=== PATIENT | male | born 1960 | race Caucasian/White ===

== ENCOUNTER 2020-10-26 16:48 | Emergency (ER) | payer BC ==
[2020-10-26] MEDS ORDERED: HYDROmorphone 0.5 MG/0.5 ML SYRINGE IVP STA ×2 (17:31→18:54)
[2020-10-26] MEDS ORDERED: SODIUM CHLORIDE 0.9% 1,000 ML IV STA (17:31)
[2020-10-26] MEDS ORDERED: ONDANSETRON 4 MG/2 ML VIAL IVP STA (17:31)
[2020-10-26] MEDS ORDERED: FAMOTIDINE 20 MG/2 ML VIAL IV STA (17:32)
[2020-10-26 18:07] LABS: Appearance,Urine Clear (Clear); Basophils # (A) 0.1 k/uL (0-0.2); Basophils % (A) 0 %; Bilirubin,Urine Negative (Negative); Blood,Urine Negative (Negative); Color,Urine Colorless; Eosinophils # (A) 0.2 k/uL (0-0.7); Eosinophils % (A) 2 %; Glucose,Urine (UA) Negative (Negative); HCT 47.6 % (39.0-53.0); HGB 16.4 gm/dL (13.0-17.5); Ketones,Urine Negative (Negative); Leukocyte Esterase,Urine Negative (Negative); Lymphocytes % (A) 13 %; MCH 33.1 pg (25.0-35.0); MCHC 34.4 g/dL (31.0-37.0); MCV 96.3 fL (80.0-100.0); Mean Platelet Volume 7.4; Monocytes # (A) 0.6 k/uL (0-1.0); Monocytes % (A) 4 %; Neutrophils # (A) 11.7 k/uL (1.3-7.7); Neutrophils % (A) 80 %; Nitrite,Urine Negative (Negative); Platelet Count 299 k/uL (150-450); Protein,Urine Negative (Negative); RBC 4.94 m/uL (4.30-5.90); RDW 12.8 % (11.5-15.5); Specific Gravity,Urine 1.003 (1.001-1.035); Urobilinogen,Urine <2.0 mg/dL (<2.0); WBC 14.7 k/uL (3.8-10.6)
[2020-10-26 18:28] LABS: ALT 69 U/L (4-49); AST 35 U/L (17-59); African American GFR (CKD) >90 (>60 ml/min/1.73 sqM); Albumin 4.8 g/dL (3.5-5.0); Alkaline Phosphatase 92 U/L (38-126); Anion Gap 11 mmol/L; Blood Urea Nitrogen 19 mg/dL (9-20); Calcium 9.8 mg/dL (8.4-10.2); Carbon Dioxide 23 mmol/L (22-30); Chloride 100 mmol/L (98-107); Glucose 103 mg/dL (74-99); Lipase 111 U/L (23-300); Non-African American GFR(CKD) >90 (>60 ml/min/1.73 sqM); Potassium 4.5 mmol/L (3.5-5.1); Sodium 134 mmol/L (137-145); Total Bilirubin 0.7 mg/dL (0.2-1.3); Total Protein 7.9 g/dL (6.3-8.2)
[2020-10-26] MEDS ORDERED: LORazepam 2 MG/ML INJ IV STA (18:54)
--- NOTE | 2020-10-26 19:07 | XR ---
EXAMINATION TYPE: XR chest 1V DATE OF EXAM: 10/26/2020 CLINICAL HISTORY: cough. TECHNIQUE: Portable frontal view of the chest. COMPARISON: None FINDINGS: The cardiomediastinal silhouette is within normal limits for size. Pulmonary vasculature i s normal. There is no focal air space opacity. No pleural effusion. No pneumothorax seen. No acute d isplaced osseous fracture. IMPRESSION: No acute cardiopulmonary process.
--- NOTE | 2020-10-26 21:01 | CT ---
EXAMINATION TYPE: CT ChestAbdPelvis w con DATE OF EXAM: 10/26/2020 COMPARISON: Same day chest radiograph HISTORY: Pain. Chest and flank pain. CT DLP: 1619.6 mGycm Automated exposure control for dose reduction was used. CONTRAST: CT scan of the chest, abdomen and pelvis is performed with 100 mL Isovue-300 intravenous contrast. FINDINGS: LUNGS: Minimal atelectasis. No focal airspace opacity. There is no pleural effusion or pneumothorax s een. The tracheobronchial tree is patent. MEDIASTINUM: No suspicious axillary, mediastinal, or hilar lymph adenopathy. There is a right paratra cheal mediastinal lymph node measuring 11 mm however this demonstrates somewhat fatty appearance. Car diac size normal. No pericardial effusion. Calcified coronary artery disease. Thoracic aorta normal i n caliber. OTHER: Thyroid normal. LIVER/GB: Fatty liver. PANCREAS: Normal. SPLEEN: Normal. ADRENALS: Normal. KIDNEYS: No hydronephrosis bilaterally. There is mild nonspecific bilateral perinephric stranding. Th ere is homogenous and synchronous renal enhancement bilaterally. Too small to characterize hypodense lesion of the left lower pole. BOWEL: No evidence of bowel obstruction or thickening. Colonic diverticulosis. No acute diverticulit is. PELVIS: Protrusion of the prostate into the base of the urinary bladder. LYMPH NODES: No greater than 1 cm abdominal or pelvic lymph nodes are appreciated. PERITONEUM: No pneumoperitoneum or ascites. OSSEOUS STRUCTURES: Degenerative changes of the spine. No acute osseous abnormality. VASCULAR: Abdominal aorta normal in caliber. IMPRESSION: 1. Fatty liver. 2. Too small to characterize hypodense lesion of the left kidney. No hydronephrosis.
[2020-10-26] MEDS ORDERED: ACET/COD 300 MG/30 MG STARTER PACK 6 TAB BTL PO STA (21:57)
[2020-10-26] MEDS ORDERED: CYCLOBENZAPRINE 10MG STARTER 3 TAB BTL PO STA (21:57)
--- NOTE | 2020-10-26 21:59 | ED ---
General Adult HPI - General Chief complaint: Abdominal Pain Stated complaint: Pain, trouble swallowing Time Seen by Provider: 10/26/20 17:15 Source: patient Mode of arrival: ambulatory Limitations: no limitations - History of Present Illness Initial comments: 60 year-old male patient presents to the emergency department for multiple complaints. He reports neck pain, back pain, midepigastric pain, and bilateral flank pain. Patient states that he is also having gagging and acid reflux. States that symptoms have been going on for quite some time and he has been receiving care from his primary care physician. States that he has ordered testing, but he cannot wait anymore due to the pain worsening. He states the pain in his back feels like spasms that start near his kidneys and go up into his neck. Denies any radiation of the pain down his arms. States that he constantly has discomfort over his midepigastric region which causes him to gag. He gets a burning in his chest which he believes is acid reflux. State that his physician did recently prescribe him omeprazole and gabapentin. He wants to do an MRI, have him see a hat ironer, and recently did labs and cologard. Patient states nothing is working, it is making him depressed, and he cannot wait any longer for answers. Patient denies any recent rash, fever, chills, cough, numbness, tingling, dizziness, weakness, hematuria, dysuria, urinary urgency, urinary frequency, headache, visual changes, or any other complaints. - Related Data Home Medications Medication Instructions Recorded Confirmed Acetaminophen [Tylenol 8 Hour] 650 mg PO Q8H PRN 10/26/20 10/26/20 Esomeprazole Magnesium [NexIUM 20 mg PO DAILY 10/26/20 10/26/20 24Hr] Gabapentin [Neurontin] 300 mg PO TID 10/26/20 10/26/20 Meloxicam 7.5 mg PO DAILY 10/26/20 10/26/20 Omeprazole 40 mg PO DAILY 10/26/20 10/26/20 allopurinoL [Zyloprim] 300 mg PO DAILY 10/26/20 10/26/20 amLODIPine BESYLATE/BENAZEPRIL 1 tab PO BID 10/26/20 10/26/20 [amLODIPine BESYLATE/BENAZEPRIL 5-20 MG] Previous Rx's Medication Instructions Recorded Cyclobenzaprine [Flexeril] 10 mg PO TID #15 tab 10/26/20 Famotidine [Pepcid] 20 mg PO HS #30 tablet 10/26/20 Allergies Allergy/AdvReac Type Severity Reaction Status Date / Time Penicillins Allergy Rash/Hives Verified 10/26/20 19:38 Review of Systems ROS Statement: Those systems with pertinent positive or pertinent negative responses have been documented in the HPI. ROS Other: All systems not noted in ROS Statement are negative. Past Medical History Past Medical History: GERD/Reflux History of Any Multi-Drug Resistant Organisms: None Reported Past Surgical History: Orthopedic Surgery Additional Past Surgical History / Comment(s): lt ankle and rt leg Past Psychological History: Anxiety Smoking Status: Current every day smoker Past Alcohol Use History: Occasional Past Drug Use History: Marijuana General Exam Limitations: no limitations General appearance: alert, in no apparent distress, other (This is a well developed, well nourished, adult male patient in mild distress related to pain. Vital signs upon presentation are temperature 98.5F, pulse 70, respirations 22, blood pressure 158/94, pulse ox 96% on room air.) Eye exam: Present: normal appearance, PERRL, EOMI. Absent: scleral icterus, conjunctival injection, periorbital swelling ENT exam: Present: normal exam, normal oropharynx, mucous membranes moist Respiratory exam: Present: normal lung sounds bilaterally. Absent: respiratory distress, wheezes, rales, rhonchi, stridor Cardiovascular Exam: Present: regular rate, normal rhythm, normal heart sounds. Absent: systolic murmur, diastolic murmur, rubs, gallop, clicks GI/Abdominal exam: Present: soft, normal bowel sounds. Absent: distended, tenderness, guarding, rebound, rigid Back exam: Present: normal inspection. Absent: vertebral tenderness Neurological exam: Present: alert, oriented X3, CN II-XII intact Psychiatric exam: Present: normal affect, normal mood Skin exam: Present: warm, dry, intact, normal color. Absent: rash Course Vital Signs 10/26/20 10/26/20 17:08 22:35 Temperature 98.5 F 97.8 F Pulse Rate 70 77 Respiratory 22 20 Rate Blood Pressure 158/94 132/84 O2 Sat by Pulse 96 97 Oximetry EKG Findings - EKG Comments: EKG Findings:: EKG obtained at 1752 shows normal sinus rhythm with a ventricular rate of 60, NV interval 146, QRS duration 92, QT 424, QTC 424. No evidence of ST elevation or depression Medical Decision Making - Medical Decision Making 60-year-old male patient presents to the emergency department today for evaluation of neck pain, back pain, flank pain, abdominal pain. Physical examination did reveal midepigastric tenderness. He is neurologically intact. No focal deficits. Neurovascular status is intact. Labs reviewed and did reveal elevated white blood cell count of 14.7. Sodium 134. Urine is negative. Covid is negative. CT chest, abdomen, pelvis obtained and showed a small lesion on the left kidney. Upon reevaluation is resting comfortably in bed. States he is feeling better. We discharged with muscle relaxer and Tylenol for codeine. Is instructed follow up his primary care physician to proceed with testing as ordered. He is instructed to discuss kidney lesion so this can be monitored. Return parameters were discussed in detail. He verbalizes understanding and agrees this plan. Case discussed my attending Dr. Weems. - Lab Data Result diagrams: 10/26/20 17:57 10/26/20 17:57 Lab Results 10/26/20 10/26/20 10/26/20 Range/Units 17:57 17:57 17:57 WBC 14.7 H (3.8-10.6) k/uL RBC 4.94 (4.30-5.90) m/uL Hgb 16.4 (13.0-17.5) gm/dL Hct 47.6 (39.0-53.0) % MCV 96.3 (80.0-100.0) fL MCH 33.1 (25.0-35.0) pg MCHC 34.4 (31.0-37.0) g/dL RDW 12.8 (11.5-15.5) % Plt Count 299 (150-450) k/uL MPV 7.4 Neutrophils % 80 % Lymphocytes % 13 % Monocytes % 4 % Eosinophils % 2 % Basophils % 0 % Neutrophils # 11.7 H (1.3-7.7) k/uL Lymphocytes # 2.0 (1.0-4.8) k/uL Monocytes # 0.6 (0-1.0) k/uL Eosinophils # 0.2 (0-0.7) k/uL Basophils # 0.1 (0-0.2) k/uL Sodium 134 L (137-145) mmol/L Potassium 4.5 (3.5-5.1) mmol/L Chloride 100 (98-107) mmol/L Carbon Dioxide 23 (22-30) mmol/L Anion Gap 11 mmol/L BUN 19 (9-20) mg/dL Creatinine 0.63 L (0.66-1.25) mg/dL Est GFR (CKD-EPI)AfAm >90 (>60 ml/min/1.73 sqM) Est GFR (CKD-EPI)NonAf >90 (>60 ml/min/1.73 sqM) Glucose 103 H (74-99) mg/dL Plasma Lactic Acid Sarabjit (0.7-2.0) mmol/L Calcium 9.8 (8.4-10.2) mg/dL Total Bilirubin 0.7 (0.2-1.3) mg/dL AST 35 (17-59) U/L ALT 69 H (4-49) U/L Alkaline Phosphatase 92 (38-126) U/L Troponin I (0.000-0.034) ng/mL Total Protein 7.9 (6.3-8.2) g/dL Albumin 4.8 (3.5-5.0) g/dL Lipase 111 (23-300) U/L Urine Color Colorless Urine Appearance Clear (Clear) Urine pH 6.0 (5.0-8.0) Ur Specific [place] 1.003 (1.001-1.035) Urine Protein Negative (Negative) Urine Glucose (UA) Negative (Negative) Urine Ketones Negative (Negative) Urine Blood Negative (Negative) Urine Nitrite Negative (Negative) Urine Bilirubin Negative (Negative) Urine Urobilinogen <2.0 (<2.0) mg/dL Ur Leukocyte Esterase Negative (Negative) Coronavirus (PCR) (Not Detectd) 10/26/20 10/26/20 10/26/20 Range/Units 17:57 17:57 17:57 WBC (3.8-10.6) k/uL RBC (4.30-5.90) m/uL Hgb (13.0-17.5) gm/dL Hct (39.0-53.0) % MCV (80.0-100.0) fL MCH (25.0-35.0) pg MCHC (31.0-37.0) g/dL RDW (11.5-15.5) % Plt Count (150-450) k/uL MPV Neutrophils % % Lymphocytes % % Monocytes % % Eosinophils % % Basophils % % Neutrophils # (1.3-7.7) k/uL Lymphocytes # (1.0-4.8) k/uL Monocytes # (0-1.0) k/uL Eosinophils # (0-0.7) k/uL Basophils # (0-0.2) k/uL Sodium (137-145) mmol/L Potassium (3.5-5.1) mmol/L Chloride (98-107) mmol/L Carbon Dioxide (22-30) mmol/L Anion Gap mmol/L BUN (9-20) mg/dL Creatinine (0.66-1.25) mg/dL Est GFR (CKD-EPI)AfAm (>60 ml/min/1.73 sqM) Est GFR (CKD-EPI)NonAf (>60 ml/min/1.73 sqM) Glucose (74-99) mg/dL Plasma Lactic Acid Sarabjit 0.8 (0.7-2.0) mmol/L Calcium (8.4-10.2) mg/dL Total Bilirubin (0.2-1.3) mg/dL AST (17-59) U/L ALT (4-49) U/L Alkaline Phosphatase (38-126) U/L Troponin I <0.012 (0.000-0.034) ng/mL Total Protein (6.3-8.2) g/dL Albumin (3.5-5.0) g/dL Lipase (23-300) U/L Urine Color Urine Appearance (Clear) Urine pH (5.0-8.0) Ur Specific [place] (1.001-1.035) Urine Protein (Negative) Urine Glucose (UA) (Negative) Urine Ketones (Negative) Urine Blood (Negative) Urine Nitrite (Negative) Urine Bilirubin (Negative) Urine Urobilinogen (<2.0) mg/dL Ur Leukocyte Esterase (Negative) Coronavirus (PCR) Not Detected (Not Detectd) - Radiology Data Radiology results: report reviewed, image reviewed Two-view x-ray of the chest is obtained. Report was reviewed in its entirety. Impression by Dr. Hughes shows no acute cardiopulmonary process CT chest abdomen and pelvis with contrast was obtained. Report was reviewed in its entirety. Impression by Dr. Hughes shows fatty liver, too small to characterize hypodense lesion of the left kidney. No hydronephrosis. Disposition Clinical Impression: Neck pain, Flank pain, Abdominal pain Disposition: HOME SELF-CARE Condition: Good Instructions (If sedation given, give patient instructions): Abdominal Pain (ED), Flank Pain (ED), Neck Pain (ED) Additional Instructions: Take medications as directed. Increase fluids. Follow-up with gastroenterology as your doctor has planned. Follow up with Primary Care Physician for Recheck in 1-2 Days. Return for Any New, Worsening, or concerning Symptoms. Prescriptions: Cyclobenzaprine [Flexeril] 10 mg PO TID #15 tab Famotidine [Pepcid] 20 mg PO HS #30 tablet Is patient prescribed a controlled substance at d/c from ED?: No Referrals: Tripp High MD [Primary Care Provider] - 1-2 days Time of Disposition: 21:59
[2020-10-26 22:36] VITALS: BP 132/84; PULSE 77; RESP 20; TEMP 97.8
== END 2020-10-26 22:36 | disposition home or self-care (01) ==
LOC: EC 16:48
DX: R10.9 Unspecified abdominal pain (principal); M54.2 Cervicalgia; K21.9 Gastro-esophageal reflux disease without esophagitis; F17.200 Nicotine dependence, unspecified, uncomplicated
CPT/HCPCS: 36415; 93005; 80053; 83605; 83690; 84484; 85025; 81003; 87635; 71045; 71260; 74177; 99284; 96374; 96375; 96376; J2060; J2405; J1170; Q9967

== ENCOUNTER → 2021-04-04 | Outpatient (CLI) | payer BC ==
--- NOTE | 2021-04-04 10:54 | MR ---
EXAMINATION TYPE: MR cspine/lspine wo con DATE OF EXAM: 04/04/2021 COMPARISON: None HISTORY: Lumbar disc prolapse, neck pain, numbness TECHNIQUE: Multiplanar, multisequence imaging of the lumbar and cervical spine is performed without I V contrast. FINDINGS: No intravenous contrast, patient refused. Cervical spine MRI: There is multilevel spondylosis, endplate discogenic marrow signal change. Loss o f disc height and signal is present at the intervertebral levels especially C5-6 and C6-7. Cervical v ertebral bodies show preserved height, near-anatomic alignment. Cervical cord signal is maintained. C2-3: Posterior disc bulge contacts the anterior cervical cord. No significant foraminal encroachment or spinal stenosis. C3-4: Posterior disc protrusion is noted, no significant spinal stenosis. Some uncovertebral joint hy pertrophy, facet arthropathy changes present, mild foraminal encroachment suspected on the left. C4-5: Posterior central disc protrusion contacts the anterior cervical cord. There is mild to moderat e spinal stenosis. Uncovertebral joint hypertrophy, facet arthropathy changes encroach minimally on t he foramina C5-6: There is moderate to severe spinal stenosis due to posterior extension of endplate disc complex , minimal retrolisthesis grade 1 C5 and C6. There is bilateral foraminal encroachment due to uncovert ebral joint hypertrophy and facet arthropathy causing significant narrowing left greater than right. C6-7: Posterior fixation and plate disc complex results in mild spinal stenosis. Uncovertebral joint hypertrophy, facet arthropathy causes bilateral foraminal encroachment. C7-T1: Within normal limits. IMPRESSION: Degenerative disc disease, spinal stenosis, multilevel foraminal encroachment Lumbar spine MRI: Sagittal images of the lumbar spine show vertebral body heights and alignment to appear satisfactory. There is multilevel spondylosis with endplate discogenic marrow signal change. Loss of disc height a nd signal is consistent with disc desiccation and degenerative disc disease and is most significant a t L4-5, L2-3. Conus is at T12 and shows an unremarkable appearance. L5-S1: There is facet arthropathy change. Posterior broad-based disc bulge is minimal. No significant spinal stenosis or foraminal encroachment. L4-5: There is facet arthropathy with hypertrophy ligamentum flavum. There is some encroachment on th e lateral recesses. Circumferential posterior disc bulge causes anterior mass effect on the thecal sa c, mild to moderate spinal stenosis. Circumflex extension) complex results in bilateral foraminal enc roachment. L3-4: Circumferential extension of endplates is complex causes bilateral foraminal encroachment. Ther e is no significant spinal stenosis. Facet arthropathy change with hypertrophy of the ligamentum flav um is noted. Minimal circumferential disc bulge effaces the anterior thecal sac. L2-3: No significant spinal stenosis. Circumferential extension) complex encroaches upon the foramina . There is some facet arthropathy change. L1-2: No significant spinal stenosis. There is some mild facet arthropathy. No significant foraminal encroachment. IMPRESSION: Degenerative disc disease, facet arthropathy, there is some spinal stenosis at L4-5. Mult ilevel foraminal encroachment. IMPRESSION: Negative MRI of the lumbar spine.
== END | disposition home or self-care (01) ==
LOC: RADMRIMAIN 09:00
PROVIDERS: ATTEND Family Medicine
DX: M47.812 Spondylosis without myelopathy or radiculopathy, cervical region (principal); M48.02 Spinal stenosis, cervical region; M50.222 Other cervical disc displacement at C5-C6 level; M48.061 Spinal stenosis, lumbar region without neurogenic claudication; M51.26 Other intervertebral disc displacement, lumbar region; M51.36 Other intervertebral disc degeneration, lumbar region; M47.816 Spondylosis without myelopathy or radiculopathy, lumbar region
CPT/HCPCS: 72141; 72148

== ENCOUNTER → 2021-05-06 | Outpatient (CLI) | payer BC ==
[2021-05-06 13:12] VITALS: BP 124/82; PULSE 65; RESP 18
--- NOTE | 2021-05-06 15:50 | P.PAINCN ---
History of Present Illness - Reason for Consult Consult date: 05/06/21 - History of Present Illness Antoine is a 61-year-old male presented to clinic today for initial evaluation for pain management. He was referred to this clinic by his primary care provider Dr. High. At this visit he was complaining of all over pain. He reports that he had neck pain that radiated down both arms into his hands and no specific dermatomal pattern. He reports he has low back to upper back pain with numbness and tingling radiating down his legs to his feet without any particular radicular pattern. He reports that his pain moves about his body on different days. He reported that his pain has begun about 7 months ago coinciding with his first COVID-19 vaccination. He describes his pain as a sharp stabbing, numbing pain. Has not been able identify single factor that increases pain. Reports his pain is better with medication which includes gabapentin and [place], heat, ice and tree care foreman. He has not received any physical therapy for these pains will reports he did not get any significant relief with this chiropractor. He rates his pain today as 7 out of 10 on a 0-to-10 scale. On average he reports that his pain is a 4 out of 10. Of his multiple pain complaints he rates his neck pain as his primary issue today. He denies any bowel or bladder dysfunction, saddle anesthesia, or any other red flag symptoms. Denies any adverse effects or complications from his current medications. His primary care provider is providing him with gabapentin and [place]. Past Medical History Past Medical History: GERD/Reflux, Hypertension Additional Past Medical History / Comment(s): gout History of Any Multi-Drug Resistant Organisms: None Reported Past Surgical History: Orthopedic Surgery Additional Past Surgical History / Comment(s): lt ankle and rt leg Past Anesthesia/Blood Transfusion Reactions: No Reported Reaction Past Psychological History: Anxiety Smoking Status: Current every day smoker Past Alcohol Use History: Occasional Past Drug Use History: Marijuana Medications and Allergies Home Medications Medication Instructions Recorded Confirmed Type Acetaminophen [Tylenol 8 Hour] 650 mg PO Q8H PRN 10/26/20 05/06/21 History Gabapentin [Neurontin] 300 mg PO TID 10/26/20 05/06/21 History Omeprazole 40 mg PO DAILY 10/26/20 05/06/21 History allopurinoL [Zyloprim] 300 mg PO DAILY 10/26/20 05/06/21 History amLODIPine BESYLATE/BENAZEPRIL 1 tab PO BID 10/26/20 05/06/21 History [amLODIPine BESYLATE/BENAZEPRIL 5-20 MG] [place] (Unkn Dose) 1 tab PO DAILY 04/30/21 05/06/21 History Allergies Allergy/AdvReac Type Severity Reaction Status Date / Time Penicillins Allergy Rash/Hives Verified 05/06/21 13:12 Physical Exam REVIEW OF ORGAN SYSTEMS: CONSTITUTIONAL: No fevers or chills. No recent weight loss. EYES: denies troubles with vision. HEENT: No difficulties with hearing. No nosebleeds. No difficulty swallowing. RESPIRATORY: Denies any troubles with breathing or dyspnea on exertion. CARDIOVASCULAR: Denies any chest pain, palpitations, or recent heart attacks. GASTROINTESTINAL: Denies fatty food intolerance. Has change in bowel habits and gas bloat. GENITOURINARY: Denies any blood in urine. Has increased urinary frequency. NEUROLOGICAL: + numbness and tingling along the distal extremities. No seizure disorders or headaches. MUSCULOSKELETAL: Has back pain. SKIN:no skin cancer. No rash. PSYCHIATRIC: Denies current depression or suicidal thoughts. ENDOCRINE: Denies current thyroid disorders. Denies any blood sugar glucose intolerance. HEME/LYMPHATIC: Denies any lumps and bumps around the neck. History of deep venous thrombosis. ALLERGY/IMMUNOLOGY: No immunoglobulin therapy. No immune deficiencies. BREAST: Denies current breast lumps, pain or nipple discharge. Physical Examinations : Constitutiona : Cooperative , not in acute distress . HEENT : nech : supple , no Lymphadenopathy , normal thyroid size . : eyes no ptosis , no icterus, no photophobia . : ENT normal of hearing , normal oropharynx , no Thrush . Respiratory : Chest clear to auscultations Bilaterally , no wheezing , no Rhonchi . Cardiovascula : regular rate and rhythem , S1 , S2 , no S3 , no S4. Gastrointestina : abdomen soft no tenderness , bowel sounds , no organomegally . Genitourinary : Defferred . neurologic : Cranial nerve II to XII intact , no focal neurological deffecit . psychatric : alert , oriented X 3 , appropriate affect , intact judgment and insight . Lymphatic : no Lymphadenopathy . musculoskeltal : Cervical Spine motor stregnth in the deltoid and biceps, normal right side , normal Left side motor stregnth biceps and the wrist ex tensors normal right side ,normal left side . motor stregnth in the triceps muscle . normal Right side , normal Left side deep tendon reflexes= normal at the biceps , normal at Brachioradialis , normal at triceps. cervical facet loading test: Positive Bilaterally Spurling test= positive bilaterally. Neck distraction test= positive bilaterally. Joe sign= negative Lumber spine moter stegnth lower extremities ,thigh and legs 5/5 Right side , 5/5 Left side deep tendon reflexes : normal Knee Jerk , normal ankle Jerk lumber facet Loading Test= positive Right , positive Left Range of motion of the lumbar spine Flexion 30 degrees, extension 10 degrees strait leg raising test , positive at 20 degree Fabere test= positive right tenderness over the Sacroiliac joint on the Right Gaenslen test= positive right. Seated flexion test= positive right. Assessment and Plan Assessment: Assessment and plan Assessment: Cervical spondylosis and facet arthropathy without myelopathy Lumbar spondylosis and facet arthropathy without myelopathy Myofascial pain Plan: Patient could benefit from diagnostic bilateral cervical medial branch blocks at C5 6 and C6 7. If he has significant reduction in his pain continue with second cervical medial branch block at C5 6 and C6 7. Continue up to including rhizotomy. In the future patient could benefit from right-sided lumbar medial branch block at L5-S1 The future patient could benefit from right-sided SI joint injection Medications: Patient currently gets gabapentin and [place] from his primary care provider - PQRS measures = - Patient's medications are documented in the chart. -Tobacco use is positive and counseling.Given. -Patient's has not received pneumococcal vaccine. -Advanced care planning discussed, patient not eligible. -Opiate contract not signed. -Pain positive and follow-up visit/procedure is scheduled. -Patient's blood pressure measured [124/82 ] , and documented in the record ,and patient will follow up with the primary care. -Patient was not identified as an unhealthy alcohol user Time with Patient: Greater than 30 PQRS Measure Charge Sheet - Pain Location Neck Non-Pharmacological Interventions: Heat, Ice, Position/Reposition Pharmacological Interventions: PRN Medication PQRS Narrative: Pain Intensity [Back] 0 Pain Intensity [Neck] 10 Scale Used Numeric (1 - 10) Home Medications: Ambulatory Orders Acetaminophen [Tylenol 8 Hour] 650 mg PO Q8H PRN 10/26/20 Gabapentin [Neurontin] 300 mg PO TID 10/26/20 Omeprazole 40 mg PO DAILY 10/26/20 allopurinoL [Zyloprim] 300 mg PO DAILY 10/26/20 amLODIPine BESYLATE/BENAZEPRIL [amLODIPine BESYLATE/BENAZEPRIL 5-20 MG] 1 tab PO BID 10/26/20 [place] (Unkn Dose) 1 tab PO DAILY 04/30/21
== END ==
LOC: PNWHC3 12:03
PROVIDERS: ATTEND Student in an Organized Health Care Education/Training Program
DX: M47.812 Spondylosis without myelopathy or radiculopathy, cervical region (principal); M47.816 Spondylosis without myelopathy or radiculopathy, lumbar region; M79.18 Myalgia, other site; I10 Essential (primary) hypertension; F41.9 Anxiety disorder, unspecified; F17.200 Nicotine dependence, unspecified, uncomplicated; K21.9 Gastro-esophageal reflux disease without esophagitis; Z79.899 Other long term (current) drug therapy; Z88.0 Allergy status to penicillin
CPT/HCPCS: 99211

== ENCOUNTER → 2021-05-24 | Outpatient (CLI) | payer BC ==
--- NOTE | 2021-05-26 17:28 | US ---
EXAMINATION TYPE: US kidneys/renal and bladder DATE OF EXAM: 05/24/2021 COMPARISON: Correlation CT 10/26/2020 CLINICAL HISTORY: 61-year-old male N28.1 RENAL CYST. EXAM MEASUREMENTS: Right Kidney: 13.1 x 6.2 x 6.7 cm Left Kidney: 12.5 x 6. 1 x 5.5 cm Right Kidney: Prominent in size. No hydronephrosis. Left Kidney: Prominent in size. There is a central, mid pole cyst measuring 1.3 x 1.2 x 1.6cm Bladder: wnl IMPRESSION: No hydronephrosis. A 1.6 cm benign midpole cyst left kidney.
== END | disposition home or self-care (01) ==
LOC: RADUSWWP 14:50
PROVIDERS: ATTEND Urology
DX: N28.1 Cyst of kidney, acquired (principal)
CPT/HCPCS: 76770

== ENCOUNTER → 2021-10-31 | Outpatient (CLI) | payer BC ==
--- NOTE | 2021-10-31 16:13 | MR ---
EXAMINATION TYPE: MR brain wo con DATE OF EXAM: 10/31/2021 COMPARISON: NONE HISTORY: Headache, unspecified TECHNIQUE: Multiplanar, multisequence imaging of the brain and brainstem is performed without IV cont rast. FINDINGS: Diffusion weighted images demonstrate no evidence of a recent infarct or other diffusion abnormality. There is no extraaxial fluid collection or significant white matter signal abnormality. The ventricu lar system and cisternal spaces are normal in size and appearance. The brain volume is age appropria te. Midline structures demonstrate normal morphology. The craniocervical junction appears within normal limits. Normal vascular flow voids are present. There is dominant right vertebral artery filling the basilar artery incidentally noted. The visualized sinuses are clear and the globes are intact. Increa sed fluid signal inferior left mastoid air cells. IMPRESSION: Correlate to exclude mild inferior left-sided mastoiditis otherwise unremarkable study.
== END | disposition home or self-care (01) ==
LOC: RADMRIMAIN 14:21
PROVIDERS: ATTEND Nurse Practitioner
DX: R51.9 Headache, unspecified (principal)
CPT/HCPCS: 70551

== ENCOUNTER → 2024-10-03 | Outpatient (CLI) | payer MEDICARE ==
--- NOTE | 2024-10-03 13:09 | CTL ---
EXAMINATION TYPE: CT Low Dose Lung DATE OF EXAM: 10/03/2024 12:14 PM COMPARISON: 10/26/2020. CLINICAL INDICATION: Male, 64 years old with history of Z12.2 Screening; J44.9 COPD; Current smoker 1 /2 ppd x 43 years, history of tobacco use. TECHNIQUE: Multiple axial non-contrast scans were obtained from approximately the lung apices through the upper abdomen. Coronal and sagittal reformatted images were obtained. Low dose technique was uti lized. MIP were created on a separate workstation and submitted for review. CT DLP: 76 mGycm, Automated exposure control for dose reduction was used. CT Contrast: Contrast used: None Oral contrast used: None FINDINGS: Lack of intravenous contrast and low dose technique limits the evaluation of the vascular and soft ti ssue structures. LUNGS: No evidence of pulmonary fibrosis. No evidence of focal consolidation, pneumothorax or pleural effusion. Centrilobular emphysema changes. Coarsened interstitium in the right lateral lower lobe ne ar the diaphragm. Nodules: RUL: None. RML: None. RLL: None. JESSIKA: None. LLL: None. AIRWAY: Patent and unremarkable. HEART: Size within normal limits. No significant coronary artery calcifications. Atherosclerosis of t he coronary arteries. MEDIASTINUM: No gross evidence of adenopathy. VASCULATURE: No aortic aneurysm. MUSCULOSKELETAL: Moderate disc degeneration changes are present throughout the thoracolumbar spine. SOFT TISSUES/LYMPH NODES: Unremarkable. LOWER NECK: No significant findings. UPPER ABDOMEN: No significant findings. IMPRESSION: 1. No clinically significant pulmonary nodules. 2. Mild emphysema. CT LUNG RAD AND CT CHEST RECOMMENDATION: Lung-Rad 1 Negative: Continue annual screening with LDCT in 12 months. S Modifier (other clinically significant findings): None Recommend smoking cessation (if current smoker), or continuation of smoking cessation (if prior smoke r). Annual screening for lung cancer with low-dose computed tomography is recommended in adults ages 55 to 77 years who have a 30 pack-year smoking history and currently smoke or have quit within the pa st 15 years. Screening should be discontinued once a person has not smoked for 15 years or develops a health problem that substantially limits life expectancy or the ability or willingness to have curat joi lung surgery. Lung rads 2021 [email or web address] [facility], , 10/03/2024 1:07 PM
== END | disposition home or self-care (01) ==
LOC: RADCTMAIN 11:30
PROVIDERS: ATTEND Family Medicine
DX: Z12.2 Encounter for screening for malignant neoplasm of respiratory organs (principal); F17.210 Nicotine dependence, cigarettes, uncomplicated; J43.2 Centrilobular emphysema
CPT/HCPCS: 71271

== ENCOUNTER 2024-12-14 09:51 | Day surgery (SDC) | payer MEDICARE ==
[2024-12-13 12:34] VITALS: BMI 28.1
[2024-12-14] MEDS: IV FLUID CONTINUATION 1,000 ML IV ONE (11:13)
[2024-12-14 11:21] VITALS: TEMP 97.4
[2024-12-14] MEDS: LACTATED RINGERS 1,000 ML BAG IV STA (11:31)
[2024-12-14] MEDS ORDERED: PROPOFOL 10 MG/ML 20 ML VIAL IV ONE (12:07)
[2024-12-14] MEDS ORDERED: LIDOCAINE 2% (PF) 20 MG/ML 5 ML VIAL ONE (12:07)
--- NOTE | 2024-12-14 12:27 | P.PCN ---
Date of Procedure: 12/14/24 Procedure(s) Performed: BRIEF HISTORY: Patient is a 64-year-old pleasant white man scheduled for an elective colonoscopy as a part of screening for by history of colon polyps. Last colonoscopy was 4 years ago and was noted to have multiple colon polyp PROCEDURE PERFORMED: Colonoscopy with snare polypectomy. PREOPERATIVE DIAGNOSIS: Screening for history of colon polyps IV sedation per Anesthesia. PROCEDURE: After informed consent was obtained, the patient, was brought into the endoscopy unit. IV sedation was administered by Anesthesia under continuous monitoring. Digital rectal examination was normal. Initially the Olympus CF-160 flexible video colonoscope was then inserted in the rectum, gradually advanced into the cecum without any difficulty. Careful examination was performed as the scope was gradually being withdrawn. Ileocecal valve and the appendiceal orifice were visualized and appeared normal. Prep was excellent. Mucosa of the cecum, appeared normal. There was a 1 cm sessile ascending colon polyp removed by snare polypectomy. Rest of the ascending colon, transverse colon, appeared normal. The descending colon was a 5 mm polyp removed by cold snare polypectomy. Scattered right-sided diverticulosis seen. Rest descending colon, sigmoid colon, and rectum appeared normal. Retroflexion was performed in the rectum and no lesions were seen. The patient tolerated the procedure well. IMPRESSION: 1 cm sessile ascending colon polyp status post snare polypectomy 5 mm descending colon polyp status post cold snare polypectomy Scattered sigmoid diverticulosis RECOMMENDATIONS: Findings of this examination were discussed with the patient as well as his family. He was advised to follow the biopsy results pending the biopsy of his adenoma he can have repeat colonoscopy in 3 years..
[2024-12-14 12:55] VITALS: BP 133/67; PULSE 67; RESP 18
== END 2024-12-14 13:02 | disposition home or self-care (01) ==
LOC: ORWHC2ENDO 09:51
PROVIDERS: ATTEND Internal Medicine Gastroenterology
DX: Z12.11 Encounter for screening for malignant neoplasm of colon (principal); D12.2 Benign neoplasm of ascending colon; K57.30 Diverticulosis of large intestine without perforation or abscess without bleeding; I10 Essential (primary) hypertension; J44.9 Chronic obstructive pulmonary disease, unspecified; M10.9 Gout, unspecified; F31.9 Bipolar disorder, unspecified; K21.9 Gastro-esophageal reflux disease without esophagitis; Z87.891 Personal history of nicotine dependence; Z86.0100 Personal history of colon polyps, unspecified; Z88.0 Allergy status to penicillin; Z79.899 Other long term (current) drug therapy
CPT/HCPCS: 88305; 45385; J2704; J2003